=== PATIENT | female | born 1995 | race African-American/Black ===

== ENCOUNTER 2021-03-07 18:57 | Emergency (ER) | payer MEDICAID ==
[~2021-03-07] VITALS: Ht 165.1 cm; Wt 49.9 kg
[2021-03-07] MEDS ORDERED: ONDANSETRON 4MG ODT PO STA (20:05)
[2021-03-07] MEDS ORDERED: MECLIZINE 25MG TABLET PO ONE (20:15)
[2021-03-07 20:44] LABS: BASOPHILS % 0.8 % (0.0-2.0); EOSINOPHILS % 0.6 % (0.0-5.0); HEMATOCRIT. 31.2 % (36.0-48.0); HEMOGLOBIN. 10.8 g/dL (12.0-16.0); LYMPHOCYTES % 19.2 % (20.0-50.0); MEAN CORPUSCULAR HEMOGLOBIN 25.7 pg (28.0-32.0); MEAN CORPUSCULAR VOLUME 74.1 fL (81.0-99.0); MONOCYTES % 10.3 % (2.0-8.0); NEUTROPHILS % 69.1 % (40.0-76.0); PLATELET 133 x1000/uL (130-400); RED BLOOD CELL COUNT 4.21 mill/uL (4.2-5.4); RED CELL DISTRIBUTION WIDTH 16.3 % (11.6-14.6)
[2021-03-07 20:47] LABS: CHLORIDE 109 mEq/L (98-107)
[2021-03-07 21:01] LABS: CLARITY URINE CLEAR (CLEAR); COLOR URINE YELLOW (YELLOW); KETONES URINE NEGATIVE (NEGATIVE); LEUKOCYTE ESTERASE URINE NEGATIVE (NEGATIVE); NITRITE URINE NEGATIVE (NEGATIVE); OCCULT BLOOD URINE TRACE (NEGATIVE); PROTEIN URINE NEGATIVE (NEGATIVE); SPECIFIC GRAVITY URINE 1.004 (1.005-1.030); UROBILINOGEN URINE 0.2 E.U./dL (0.2-1.0)
[2021-03-07 22:51] VITALS: BP 112/66
== END 2021-03-07 22:54 | disposition home or self-care (01) ==
LOC: ER 18:57
DX: R51.9 Headache, unspecified (principal); R42 Dizziness and giddiness
CPT/HCPCS: 36415; 70450; 80053; 81003; 85025; 93005; 99285; J8597; Q0162

== ENCOUNTER 2021-07-06 14:20 | Emergency (ER) | payer MEDICAID, OTHER ==
[~2021-07-06] VITALS: Ht 160 cm; Wt 55.0 kg
[2021-07-06 14:36] VITALS: BP 104/66
== END 2021-07-06 18:58 | disposition left against medical advice (07) ==
LOC: ER 15:35
DX: Z53.21 Procedure and treatment not carried out due to patient leaving prior to being seen by health care provider (principal)

== ENCOUNTER 2023-03-26 17:09 | Emergency (ER) | payer SELFPAY ==
[~2023-03-26] VITALS: Ht 165.1 cm; Wt 57.0 kg
[2023-03-26 17:18] VITALS: BP 104/59; PULSE 61; RESP 18; TEMP 98.7; O2SAT 100
[2023-03-26] MEDS ORDERED: DIPHENHYDRAMINE 25MG CAPSULE PO ONE (18:30)
[2023-03-26] MEDS ORDERED: PREDNISONE 20MG TABLET PO ONE (18:30)
[2023-03-26] MEDS ORDERED: P20 MT (20:14)
[2023-03-26] MEDS ORDERED: DIPH-1207 PO (20:14)
[2023-03-27] MEDS ORDERED: P20 PO (09:37)
== END 2023-03-26 21:36 | disposition home or self-care (01) ==
LOC: ER 17:09
DX: L29.9 Pruritus, unspecified (principal)
CPT/HCPCS: 99283; 93005; Q0163; J7512